=== PATIENT | male | born 1990 | race Caucasian/White ===

== ENCOUNTER → 2018-03-11 | Emergency (ER) | payer OTHER ==
[~2018-03-11] VITALS: Ht 172.7 cm; Wt 71.7 kg
[~2018-03-11] MED LIST: COMPLERA TABLE1 EACH PO
== END | disposition left against medical advice (07) ==
LOC: ER 10:54
DX: Z53.20 Procedure and treatment not carried out because of patient's decision for unspecified reasons (principal)

== ENCOUNTER 2019-02-06 19:32 | Emergency (ER) | payer OTHER ==
[~2019-02-06] VITALS: Ht 175.3 cm; Wt 70.8 kg
[2019-02-07] MEDS ORDERED: TOBRADEX EYE DR10 ML OP (00:09)
[2019-02-07] MEDS ORDERED: ZITHROMAX500 MG PO (00:09)
== END 2019-02-07 00:32 | disposition home or self-care (01) ==
LOC: ER 19:32
DX: J06.9 Acute upper respiratory infection, unspecified (principal); B96.0 Mycoplasma pneumoniae [M. pneumoniae] as the cause of diseases classified elsewhere

== ENCOUNTER → 2023-05-14 | Emergency (ER) | payer OTHER ==
[~2023-05-14] VITALS: Ht 175.3 cm; Wt 72.6 kg
[~2023-05-14] MED LIST changes: +TOBRADEX EYE DR10 ML OP; +ZITHROMAX500 MG PO; +[UNRECOGNIZED DRUG - OTHER]
== END | disposition left against medical advice (07) ==
LOC: ER 01:36
DX: Z53.21 Procedure and treatment not carried out due to patient leaving prior to being seen by health care provider (principal)